=== PATIENT | male | born 1955 | race Caucasian/White ===

== ENCOUNTER 2016-12-18 18:01 | Emergency (ER) | payer SELFPAY ==
[~2016-12-18] VITALS: Ht 182.9 cm; Wt 76.0 kg
[~2016-12-18 18:01] MED LIST: CIPR-9 PO; CYCL-36 PO; PERC5TAB12 PO
[2016-12-18 18:02] VITALS: BP 131/86; PULSE 98; RESP 20; TEMP 98; O2SAT 94
--- NOTE | 2016-12-18 19:16 | PD ---
Physical Exam Date Seen by Provider: Dec 18, 2016 Time Seen by Provider: 19:15 Narrative 61-year-old white male presents to emergency Department with complaints of groin pain chronically. He states that he had a herniorrhaphy done a few years ago. In the last few weeks he's had worsening pain. Is also noticed some increased frequency and dysuria. He denies any fever or chills. No nausea vomiting. Pain is moderate but can be severe. Vital signs reviewed. Pt waiting for bed placement. Data Data Last Documented VS Vital Signs Date Time Temp Pulse Resp B/P (MAP) Pulse Ox O2 Delivery O2 Flow Rate FiO2 12/18/16 18:02 98.0 98 20 131/86 (101) 94 Room Air Orders Orders Urinalysis - C+S If Indicated (12/18/16 19:14) [facility] Medical Record Reviewed: No Supervised Visit with ERROL: No Scripts No Active Prescriptions or Reported Meds Mendoza Sibley Dec 18, 2016 19:16
[2016-12-18 19:39] LABS: BACTERIA, URINE MANY /hpf; BLOOD, URINE MOD (NEG); COMMENT (UR) CULTURE INDICATED; CULTURE IF INDICATED CULTURE INDICATED; GLUCOSE,URINE NEG (NEG); KETONE, URINE NEG (NEG); NITRITE,URINE NEG (NEG); PH, URINE 5.5 (5.0-8.5); SQUAMOUS EPITHELIAL CELL URINE 2 /hpf (0-5); TRANSITIONAL EPI CELLS, URINE 3 /hpf; URINE COLOR YELLOW (YELLW/STRAW)
[2016-12-18 20:36] VITALS: BP 123/78; PULSE 72; RESP 15; TEMP 97.7; O2SAT 98
[2016-12-18] MEDS ORDERED: SODIUM CHLOR 0.9% 1000 ML INJ 1,000 ML IV SCH (20:53)
[2016-12-18] MEDS ORDERED: ONDANSETRON HCL 4 MG/2 ML VIAL IVP ONE (21:00)
[2016-12-18] MEDS ORDERED: MORPHINE SULFATE 4 MG/ML INJ IV PUSH ONE (21:00)
[2016-12-18] MEDS ORDERED: cefTRIAXone INJ 1,000 MG in SODIUM CHLORIDE 0.9% INJ 100 ML IV ONE (21:00)
[2016-12-18] MEDS ORDERED: SODIUM CHLORIDE 0.9% FLUSH 10 ML FLUSH IV FLUSH PRN (21:00)
[2016-12-18 21:22] LABS: AUTOMATED NEUTROPHIL # 7.8 TH/MM3 (1.8-7.7); BASOPHIL % 0.3 % (0.0-2.0); EOSINOPHIL # 0.1 TH/MM3 (0-0.4); EOSINOPHIL % 0.6 % (0.0-4.0); HEMATOCRIT 42.6 % (39.0-51.0); HEMO FLAGS DIFF FINAL; LYMPH % 13.8 % (9.0-44.0); LYMPHOCYTE # 1.4 TH/MM3 (1.0-4.8); MEAN CELL VOLUME 89.1 FL (80.0-100.0); MEAN CORPUSCULAR HEMOGLOBIN 30.3 PG (27.0-34.0); MONO % 6.8 % (0.0-8.0); NEUT % 78.5 % (16.0-70.0); PLATELET COUNT 287 TH/MM3 (150-450); RED BLOOD COUNT 4.78 MIL/MM3 (4.50-5.90)
[2016-12-18 21:35] LABS: ANION GAP 7 MEQ/L (5-15); AST (GOT) 21 U/L (15-37); BICARBONATE 27.9 MEQ/L (21.0-32.0); BLOOD UREA NITROGEN 22 MG/DL (7-18); CHLORIDE 101 MEQ/L (98-107); GLOMERULAR FILTRATION RATE 58 ML/MIN (>89); POTASSIUM 4.7 MEQ/L (3.5-5.1); SODIUM (NA) 136 MEQ/L (136-145)
[2016-12-18 21:36] LABS: ALT (GPT) 28 U/L (12-78)
[2016-12-18 21:39] LABS: ALKALINE PHOSPHATASE 72 U/L (45-117); TOTAL BILIRUBIN ADULT 0.3 MG/DL (0.2-1.0)
--- NOTE | 2016-12-18 22:11 | PD ---
HPI Chief Complaint: Complaint Time Seen by Provider: 20:55 Travel History International Travel<30 days: No Contact w/Intl Traveler<30days: No Traveled to known affect area: No History of Present Illness HPI Patient is a 61-year-old male presenting to emergency department for evaluation of abdominal pain as well as burning with urination. Patient states that he has burning chronically for the last 45 days. He states it's worse today which is what prompted the visit to the emergency department. He reports the pain as a 9 out of 10, he reports chills but no fever. He also reports chronic right groin pain secondary to hernia repair in 2015. Patient states that this pain has not changed. He denies any shortness of breath, chest pain, flank pain. He denies any recent sexual activity. 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 PFSH Past Medical History Hx Anticoagulant Therapy: No Blood Disorders: No Cancer: No Cardiovascular Problems: No Chemotherapy: No Cerebrovascular Accident: No Diabetes: No Diminished Hearing: No Endocrine: No Gastrointestinal Disorders: No Genitourinary: Yes Immune Disorder: No Inguinal Hernia: Yes (RIGHT) Implanted Vascular Access Dvce: No Kidney Stones: Yes Musculoskeletal: No Neurologic: No Psychiatric: No Respiratory: No Migraines: Yes Renal Failure: No Tetanus Vaccination: Unknown Influenza Vaccination: Yes PNEUMOCCOCAL Vaccine (Year): 2 Past Surgical History Abdominal Surgery: No Cardiac Surgery: No Ear Surgery: No Endocrine Surgery: No Eye Surgery: No Genitourinary Surgery: Yes Gynecologic Surgery: No Neurologic Surgery: No Oral Surgery: No Thoracic Surgery: No Other Surgery: Yes (L KIDNEY LAC REPAIR, CYST REMOVED R WRIST) Social History Alcohol Use: No Tobacco Use: Yes (1/2PPD) Substance Use: Yes (MARIJUANA ) Allergies-Medications (Allergen,Severity, Reaction): Coded Allergies: No Known Allergies (Verified Adverse Reaction, Unknown, 12/18/16) Reported Meds & Prescriptions Reported Meds & Active Scripts Active No Active Prescriptions or Reported Medications Review of Systems Except as stated in HPI: all other systems reviewed are Neg General / Constitutional: Positive: Chills, No: Fever HENT: No: Headaches Cardiovascular: No: Chest Pain or Discomfort Respiratory: No: Shortness of Breath Gastrointestinal: Positive: Abdominal Pain, No: Nausea, Vomiting Genitourinary: Positive: Dysuria, No: Flank Pain Musculoskeletal: Positive: Pain (right groin), No: Myalgias Physical Exam Narrative GENERAL: Thin, well-developed, alert male. Appears uncomfortable, no acute distress. SKIN: Warm and dry. HEAD: Atraumatic. Normocephalic. EYES: Pupils equal and round. No scleral icterus. No injection or drainage. ENT: No nasal bleeding or discharge. Mucous membranes pink and moist. NECK: Trachea midline. No JVD. CARDIOVASCULAR: Regular rate and rhythm. RESPIRATORY: No accessory muscle use. Clear to auscultation. Breath sounds equal bilaterally. GASTROINTESTINAL: Abdomen soft, nondistended. Hepatic and splenic margins not palpable. Tenderness to palpation in right and left lower quadrants, positive bowel sounds, positive guarding. No rebound. MUSCULOSKELETAL: Extremities without clubbing, cyanosis, or edema. No obvious deformities. Positive CVAT on the left NEUROLOGICAL: Awake and alert. No obvious cranial nerve deficits. Motor grossly within normal limits. Five out of 5 muscle strength in the arms and legs. Normal speech. PSYCHIATRIC: Appropriate mood and affect; insight and judgment normal. Data Data Last Documented VS Vital Signs Date Time Temp Pulse Resp B/P (MAP) Pulse Ox O2 Delivery O2 Flow Rate FiO2 12/18/16 20:36 97.7 72 15 123/78 (93) 98 Room Air Orders Orders Urinalysis - C+S If Indicated (12/18/16 19:14) Urine Culture (12/18/16 19:20) Complete Blood Count With Diff (12/18/16 20:53) Comprehensive Metabolic Panel (12/18/16 20:53) Ct Abd/Pel W Iv Contrast(Rout) (12/18/16 20:53) Iv Access Insert/Monitor (12/18/16 20:53) Ecg Monitoring (12/18/16 20:53) Oximetry (12/18/16 20:53) Morphine Inj (Morphine Inj) (12/18/16 21:00) Ondansetron Inj (Zofran Inj) (12/18/16 21:00) Ceftriaxone Inj (Rocephin Inj) (12/18/16 21:00) Sodium Chlor 0.9% 1000 Ml Inj (Ns 1000 M (12/18/16 20:53) Sodium Chloride 0.9% Flush (Ns Flush) (12/18/16 21:00) Iohexol 350 Inj (Omnipaque 350 Inj) (12/18/16 22:46) Labs Laboratory Tests Test 12/18/16 19:20 12/18/16 21:00 Urine Color YELLOW Urine Turbidity CLOUDY Urine pH 5.5 Urine Specific [place] 1.021 Urine Protein 100 mg/dL Urine Glucose (UA) NEG mg/dL Urine Ketones NEG mg/dL Urine Occult Blood MOD Urine Nitrite NEG Urine Bilirubin NEG Urine Urobilinogen LESS THAN 2.0 MG/DL Urine Leukocyte Esterase LARGE Urine RBC 163 /hpf Urine WBC /hpf Urine Squamous Epithelial Cells 2 /hpf Urine Transitional Epithelial Cells 3 /hpf Urine Amorphous Sediment RARE Urine Bacteria MANY /hpf Microscopic Urinalysis Comment CULTURE INDICATED White Blood Count 10.0 TH/MM3 Red Blood Count 4.78 MIL/MM3 Hemoglobin 14.5 GM/DL Hematocrit 42.6 % Mean Corpuscular Volume 89.1 FL Mean Corpuscular Hemoglobin 30.3 PG Mean Corpuscular Hemoglobin Concent 34.0 % Red Cell Distribution Width 15.0 % Platelet Count 287 TH/MM3 Mean Platelet Volume 7.1 FL Neutrophils (%) (Auto) 78.5 % Lymphocytes (%) (Auto) 13.8 % Monocytes (%) (Auto) 6.8 % Eosinophils (%) (Auto) 0.6 % Basophils (%) (Auto) 0.3 % Neutrophils # (Auto) 7.8 TH/MM3 Lymphocytes # (Auto) 1.4 TH/MM3 Monocytes # (Auto) 0.7 TH/MM3 Eosinophils # (Auto) 0.1 TH/MM3 Basophils # (Auto) 0.0 TH/MM3 CBC Comment DIFF FINAL Differential Comment Blood Urea Nitrogen 22 MG/DL Creatinine 1.26 MG/DL Random Glucose 83 MG/DL Total Protein 7.2 GM/DL Albumin 3.3 GM/DL Calcium Level 9.4 MG/DL Alkaline Phosphatase 72 U/L Aspartate Amino Transf (AST/SGOT) 21 U/L Alanine Aminotransferase (ALT/SGPT) 28 U/L Total Bilirubin 0.3 MG/DL Sodium Level 136 MEQ/L Potassium Level 4.7 MEQ/L Chloride Level 101 MEQ/L Carbon Dioxide Level 27.9 MEQ/L Anion Gap 7 MEQ/L Estimat Glomerular Filtration Rate 58 ML/MIN MDM Medical Decision Making Medical Screen Exam Complete: Yes Emergency Medical Condition: Yes Interpretation(s) Laboratory Tests Test 12/18/16 19:20 12/18/16 21:00 Urine Color YELLOW Urine Turbidity CLOUDY Urine pH 5.5 Urine Specific [place] 1.021 Urine Protein 100 mg/dL Urine Glucose (UA) NEG mg/dL Urine Ketones NEG mg/dL Urine Occult Blood MOD Urine Nitrite NEG Urine Bilirubin NEG Urine Urobilinogen LESS THAN 2.0 MG/DL Urine Leukocyte Esterase LARGE Urine RBC 163 /hpf Urine WBC /hpf Urine Squamous Epithelial Cells 2 /hpf Urine Transitional Epithelial Cells 3 /hpf Urine Amorphous Sediment RARE Urine Bacteria MANY /hpf Microscopic Urinalysis Comment CULTURE INDICATED White Blood Count 10.0 TH/MM3 Red Blood Count 4.78 MIL/MM3 Hemoglobin 14.5 GM/DL Hematocrit 42.6 % Mean Corpuscular Volume 89.1 FL Mean Corpuscular Hemoglobin 30.3 PG Mean Corpuscular Hemoglobin Concent 34.0 % Red Cell Distribution Width 15.0 % Platelet Count 287 TH/MM3 Mean Platelet Volume 7.1 FL Neutrophils (%) (Auto) 78.5 % Lymphocytes (%) (Auto) 13.8 % Monocytes (%) (Auto) 6.8 % Eosinophils (%) (Auto) 0.6 % Basophils (%) (Auto) 0.3 % Neutrophils # (Auto) 7.8 TH/MM3 Lymphocytes # (Auto) 1.4 TH/MM3 Monocytes # (Auto) 0.7 TH/MM3 Eosinophils # (Auto) 0.1 TH/MM3 Basophils # (Auto) 0.0 TH/MM3 CBC Comment DIFF FINAL Differential Comment Blood Urea Nitrogen 22 MG/DL Creatinine 1.26 MG/DL Random Glucose 83 MG/DL Total Protein 7.2 GM/DL Albumin 3.3 GM/DL Calcium Level 9.4 MG/DL Alkaline Phosphatase 72 U/L Aspartate Amino Transf (AST/SGOT) 21 U/L Alanine Aminotransferase (ALT/SGPT) 28 U/L Total Bilirubin 0.3 MG/DL Sodium Level 136 MEQ/L Potassium Level 4.7 MEQ/L Chloride Level 101 MEQ/L Carbon Dioxide Level 27.9 MEQ/L Anion Gap 7 MEQ/L Estimat Glomerular Filtration Rate 58 ML/MIN Vital Signs Date Time Temp Pulse Resp B/P (MAP) Pulse Ox O2 Delivery O2 Flow Rate FiO2 12/18/16 20:36 97.7 72 15 123/78 (93) 98 Room Air 10/31/17 18:02 98.0 98 20 131/86 (101) 94 Room Air Differential Diagnosis Kidney stone versus UTI versus pyelonephritis versus appendicitis versus other Narrative Course Patient is 61-year-old male presenting with urinary symptoms as well as chronic groin pain. On exam his abdomen was noted to be quite tender. Labs and imaging were ordered and pending, medication ordered for pain. Urinalysis was performed while patient was waiting in triage. Rocephin 1 g IV given. Urinalysis is consistent with a urinary tract infection. CT scan abdomen and pelvis which was read by the radiologist shows Tiny nonobstructing right renal calculi and cysts. Prominent residual left renal pelvis with no hydronephrosis. The inguinal regions are stable in appearance with no recurrent hernia. Patient's labs reviewed, no acute findings identified. Patient will be treated as outpatient for urinary tract infection. He was encouraged to follow-up with the [facility] or return to emergency department with any new or worsening symptoms. Patient was encouraged to increase fluid intake. Patient verbalized understanding of instructions. Patient stable for discharge. Diagnosis Primary Impression: UTI (urinary tract infection) Qualified Codes: N10 - Acute pyelonephritis Referrals: [facility] Patient Instructions: General Instructions, Urinary Tract Infection in Men (ED) Additional Instructions: Complete full course of antibiotics as prescribed Increase fluid intake Follow-up with the [facility] Return to emergency department for any new or worsening symptoms Do not drive or operate machinery while taking pain medication. Med/Other Pt SpecificInfo: Prescription(s) given Scripts Tramadol (Tramadol) 50 Mg Tab 50 MG PO Q6H Y for PAIN, #10 TAB 0 Refills Prov: Karma Dickens 12/18/16 Ciprofloxacin (Cipro) 500 Mg Tab 500 MG PO BID for Infection for 7 Days, #14 TAB 0 Refills Prov: Karma Dickens 12/18/16 Disposition: 01 DISCHARGE HOME Condition: Stable Karma Dickens Dec 18, 2016 22:11
[2016-12-18] MEDS ORDERED: IOHEXOL 350 MG/ML 10 ML VIAL (for RAD DIAG) IVCONTRAST ONE (22:46)
--- NOTE | 2016-12-18 22:51 | RADRPT ---
EXAM DATE/TIME: 12/18/2016 22:28 [place] COMPARISON: CT ABDOMEN & PELVIS W/O CONTRAST, January 29, 2016, 21:11. INDICATIONS : Painful urination with chronic inguinal hernia pain. Known renal calculi and prior left obstruction.. IV CONTRAST: 100 cc Omnipaque 350 (iohexol) IV ORAL CONTRAST: No oral contrast ingested. RADIATION DOSE: 6.64 CTDIvol (mGy) MEDICAL HISTORY : Renal calculi. Hernia, inguinal. SURGICAL HISTORY : Inguinal hernia repair. ENCOUNTER: Initial ACUITY: 1 day PAIN SCALE: 5/10 LOCATION: abdomen TECHNIQUE: Volumetric scanning of the abdomen and pelvis was performed. Using automated exposure control and ad justment of the mA and/or kV according to patient size, radiation dose was kept as low as reasonably achievable to obtain optimal diagnostic quality images. DICOM format image data is available electro nically for review and comparison. FINDINGS: LOWER LUNGS: The visualized lower lungs are clear. There is underlying emphysema and bullous change. LIVER: Homogeneous density without lesion. There is no dilation of the biliary tree. No calcified gallston es. SPLEEN: Normal size without lesion. PANCREAS: Within normal limits. KIDNEYS: Normal in size and shape. There are simple cysts in the right kidney with small nonobstructing calcul i. Previous noted left hydronephrosis has cleared with residual prominence left renal pelvis. ADRENAL GLANDS: Within normal limits. VASCULAR: There is no aortic aneurysm. BOWEL/MESENTERY: The stomach, small bowel, and colon demonstrate no acute abnormality. There is no free intraperitone al air or fluid. ABDOMINAL WALL: Within normal limits. RETROPERITONEUM: There is no lymphadenopathy. BLADDER: No wall thickening or mass. REPRODUCTIVE: Within normal limits. INGUINAL: There is no lymphadenopathy or hernia. MUSCULOSKELETAL: Within normal limits for patient age. CONCLUSION: 1. Tiny nonobstructing right renal calculi and cysts. 2. Prominent residual left renal pelvis with no hydronephrosis. 3. The inguinal regions are stable in appearance with no recurrent hernia. Armaan Gonzalez MD on December 18, 2016 at 22:46 Board Certified Radiologist. This report was verified electronically.
[2016-12-18] MEDS ORDERED: CIPR-9 PO (23:02)
[2016-12-18] MEDS ORDERED: TRAM50TA PO (23:02)
[2016-12-18 23:46] VITALS: BP 144/87
== END 2016-12-18 23:47 | disposition home or self-care (01) ==
LOC: NEPD 18:01
DX: N10 Acute pyelonephritis (principal); N20.0 Calculus of kidney; F17.210 Nicotine dependence, cigarettes, uncomplicated
CPT/HCPCS: 74177; 80053; 81001; 85025; 86403; 87086; 96365; 96375; 99285; J0696; J2270; J2405; J7030; Q9967

== ENCOUNTER 2017-09-30 18:50 | Inpatient (IN) ==
[2017-09-30] MEDS ORDERED: Orphenadrine Inj 60 MG/2 ML Ampul IV.PUSH ONE (21:18)
[2017-09-30] MEDS ORDERED: Ketorolac Inj 30 MG/ML (IVP) Vial IV.PUSH ONE (21:18)
--- NOTE | 2017-09-30 21:27 | ED ---
HPI General Chief Complaint: Shortness of Breath/Dyspnea Stated Complaint: Rt sided chest wall pain Time Seen by Provider: 09/30/17 21:11 Source: patient Mode of arrival: ambulatory Limitations: no limitations History of Present Illness Patient is a 61-year-old male presenting to the emergency department for evaluation of shortness of breath and right lateral rib pain. Patient states that he was moving and industrial-sized washing machine 2 days ago, later on that night he started experiencing the rib pain and felt short of breath when he took a deep breath. Patient's symptoms have been getting progressively worse since that time. Patient has not taken any medications to alleviate his symptoms. Nothing fell on patient's chest. MD Complaint: shortness of breath and pain with inspiration Context: occurred during exertion and trauma/injury Severity: moderate Consistency/Duration: constant and progressively worsening Relieving factors: nothing Exacerbating factors: exertion, movement, coughing, inspiration and deep breaths Associated symptoms: denies other symptoms Treatment prior to arrival: none Related Data Home Medications Medication Instructions Recorded Confirmed No Known Home Medications 09/30/17 09/30/17 Allergies Allergy/AdvReac Type Severity Reaction Status Date / Time No Known Allergies Unknown Uncoded 12/18/16 19:11 Review of Systems ROS: all other systems reviewed are negative PMFSH History History Provided By: Patient Family History Family History Other Coronary artery disease Diabetes mellitus Social History Social History Substance History: No History of Abuse Second Hand Smoke Exposure: Yes Smoking Status: Current every day smoker Tobacco Type: Cigarettes How Often Do You Have a Drink Containing Alcohol: Monthly or less Recent Travel in [facility] within the Last 8 Weeks: No Recent Out of Country Travel within the Last 8 Weeks: No Exam Narrative Exam Narrative: GENERAL: Thin, well-developed, alert male. Appears uncomfortable, in no acute distress. SKIN: Focused skin assessment warm/dry. HEAD: Atraumatic. Normocephalic. EYES: Pupils equal and round. No scleral icterus. No injection or drainage. ENT: No nasal bleeding or discharge. Mucous membranes pink and moist. NECK: Trachea midline. No JVD. CARDIOVASCULAR: Regular rate and rhythm. No murmur appreciated. RESPIRATORY: Tachypneic. no accessory muscle use. Wheezes throughout. GASTROINTESTINAL: Abdomen soft, non-tender, nondistended. Hepatic and splenic margins not palpable. MUSCULOSKELETAL: No obvious deformities. No clubbing. No cyanosis. No edema. NEUROLOGICAL: Awake and alert. No obvious cranial nerve deficits. Motor grossly within normal limits. Normal speech. PSYCHIATRIC: Appropriate mood and affect; insight and judgment normal. Course Initial Documented Vital Signs Temperature 97.2 F L 09/30/17 18:54 Pulse Rate 92 H 09/30/17 18:54 Respiratory Rate 24 09/30/17 18:54 Blood Pressure 158/78 H 09/30/17 18:54 Pulse Oximetry 92 L 09/30/17 18:54 Last Documented Vital Signs Temperature 97.8 F 10/02/17 16:00 Pulse Rate 69 10/02/17 16:00 Respiratory Rate 16 10/02/17 16:00 Blood Pressure 136/81 10/02/17 16:00 Pulse Oximetry 93 L 10/02/17 16:00 Medical Decision Making ERROL Attestation ERROL supervised visit: Yes Attestation: I was present with the advanced practitioner during the management of this patient. I discussed the case with the advanced practitioner and agree with the findings and plan as documented in their note except as noted below. 61yM presenting with right-sided chest pain. He reports dyspnea and cough x 2 days, started after moving a heavy object but denies direct trauma. Appears uncomfortable NCAT Borderline tachy, regular No chest wall tenderness (+) wheezing in RLL Abdomen soft and non-tender Awake and alert A/P: 61yM presenting with right-sided chest pain and cough CXR [facility] EKG and monitor Patient noted to desaturate to high 80s on room air during ambulation, will need obs vs admission MDM Narrative Medical decision making narrative: Patient is a 61-year-old male that presented to emerge from for evaluation of right lateral rib pain secondary to moving a heavy washing machine. Patient is tachypneic and his O2 sat was in the upper 80s on arrival. Labs and imaging ordered and pending. Chest x-ray shows a developing pneumonia. CBC is unremarkable. Patient was given Toradol and Norflex for pain. He was started on antibiotics empirically. Patient will be admitted for pain control and due to the hypoxia. Patient is agreeable to stay. Plan of care discussed with my attending physician. Differential Diagnosis Differential Diagnosis: Pneumothorax versus costochondritis versus pneumonia versus bronchitis versus other Lab Data Lab results reviewed: Yes I reviewed the patient's lab results. Result diagrams: 10/02/17 06:34 10/02/17 06:34 Lab Results 09/30/17 09/30/17 10/01/17 Range/Units 21:30 21:30 05:00 WBC 7.9 6.1 (4.0-11.0) th/mm3 RBC 4.42 L 4.02 L (4.50-5.90) mil/mm3 Hgb 12.9 L 11.7 L (13.0-17.0) gm/dL Hct 38.1 L 35.4 L (39.0-51.0) % MCV 86.2 87.9 (80.0-100.0) fL MCH 29.2 29.1 (27.0-34.0) pg MCHC 33.9 33.1 (32.0-36.0) % RDW 15.8 16.3 (11.6-17.2) % Plt Count 257 234 (150-450) th/mm3 MPV 7.9 7.8 (7.0-11.0) fL Neut % (Auto) 76.8 H 73.6 H (16.0-70.0) % Lymph % (Auto) 12.3 14.1 (9.0-44.0) % [place] % (Auto) 9.0 H 10.4 H (0.0-8.0) % Eos % (Auto) 1.4 1.5 (0.0-4.0) % Baso % (Auto) 0.5 0.4 (0.0-2.0) % Neut # (Auto) 6.1 4.5 (1.8-7.7) th/mm3 Lymph # (Auto) 1.0 0.9 L (1.0-4.8) th/mm3 [place] # (Auto) 0.7 0.6 (0.0-0.9) th/mm3 Eos # (Auto) 0.1 0.1 (0.0-0.4) th/mm3 Baso # (Auto) 0.0 0.0 (0.0-0.2) th/mm3 WBC Differential . . Differential Comment Auto diff final Auto diff final Sodium 142 (136-145) meq/L Potassium 4.3 (3.5-5.1) meq/L Chloride 107 (98-107) meq/L Carbon Dioxide 29.3 (21.0-32.0) meq/L Anion Gap 6 (5-15) meq/L BUN 24 H (7-18) mg/dL Creatinine 1.32 H (0.60-1.30) mg/dL Estimated GFR 55 L (>89) mL/min Random Glucose 81 (74-106) mg/dL Calcium 8.7 (8.5-10.1) mg/dL Magnesium (1.5-2.5) mg/dL Total Bilirubin 0.3 (0.2-1.0) mg/dL AST 17 (15-37) U/L ALT 20 (12-78) U/L Alkaline Phosphatase 69 (45-117) U/L Total Protein 6.7 (6.4-8.2) g/dL Albumin 3.0 L (3.4-5.0) g/dL 10/01/17 10/02/17 10/02/17 Range/Units 05:00 06:34 06:34 WBC 7.1 (4.0-11.0) th/mm3 RBC 4.12 L (4.50-5.90) mil/mm3 Hgb 12.0 L (13.0-17.0) gm/dL Hct 35.5 L (39.0-51.0) % MCV 86.1 (80.0-100.0) fL MCH 29.2 (27.0-34.0) pg MCHC 33.9 (32.0-36.0) % RDW 16.1 (11.6-17.2) % Plt Count 256 (150-450) th/mm3 MPV 7.9 (7.0-11.0) fL Neut % (Auto) 72.8 H (16.0-70.0) % Lymph % (Auto) 16.9 (9.0-44.0) % [place] % (Auto) 8.5 H (0.0-8.0) % Eos % (Auto) 1.5 (0.0-4.0) % Baso % (Auto) 0.3 (0.0-2.0) % Neut # (Auto) 5.2 (1.8-7.7) th/mm3 Lymph # (Auto) 1.2 (1.0-4.8) th/mm3 [place] # (Auto) 0.6 (0.0-0.9) th/mm3 Eos # (Auto) 0.1 (0.0-0.4) th/mm3 Baso # (Auto) 0.0 (0.0-0.2) th/mm3 WBC Differential . Differential Comment Auto diff final Sodium 140 139 (136-145) meq/L Potassium 4.0 3.8 (3.5-5.1) meq/L Chloride 106 105 (98-107) meq/L Carbon Dioxide 26.4 27.5 (21.0-32.0) meq/L Anion Gap 8 7 (5-15) meq/L BUN 23 H 19 H (7-18) mg/dL Creatinine 1.08 0.98 (0.60-1.30) mg/dL Estimated GFR 69 L 78 L (>89) mL/min Random Glucose 88 84 (74-106) mg/dL Calcium 8.2 L 8.4 L (8.5-10.1) mg/dL Magnesium 2.0 (1.5-2.5) mg/dL Total Bilirubin (0.2-1.0) mg/dL AST (15-37) U/L ALT (12-78) U/L Alkaline Phosphatase (45-117) U/L Total Protein (6.4-8.2) g/dL Albumin (3.4-5.0) g/dL Imaging Data Radiologist's impression: Chest X-Ray 09/30/17 21:17 CONCLUSION: Patchy airspace disease in the right lower lobe of concern for early pneumonia. ECG Data Attestation: I personally reviewed and interpreted this ECG as follows: Interpretation: Rate: 77 BPM Rhythm: Sinus [place]: Normal Intervals: Incomplete RBBB, QTc 400 ms Q waves: aVL, V2 T waves: Inverted in aVL, V2 ST segments: No elevations or depressions Impression: Incomplete RBBB which is new when compared to EKG from 02/01/2016. Discharge Plan Discharge Disposition Patient Disposition: 30 Still Patient Discharge Condition Condition: Stable Discharge Details Diagnosis: Community acquired pneumonia, Rib pain on right side Physicians Team ED Provider: Alyssa Ramirez ED Midlevel Provider: Karma Dickens Primary Care Provider: Primary Care Natalii,Dinah Attending Provider: Handy Eli Status ED Status: Left Department Discharge Information Discharge Date/Time: 10/01/17 00:38
--- NOTE | 2017-09-30 21:38 | XR ---
EXAM DATE: 09/30/2017 9:32 PM EDT AGE/SEX: 61 years / Male INDICATIONS: . Chest pain on right side. CLINICAL DATA: This is the patient's initial encounter. Patient reports that signs and symptoms have been present for 2 days and indicates a pain score of 9/10. MEDICAL/SURGICAL HISTORY: Chronic obstructive pulmonary disease. None. COMPARISON: No prior exams available for comparison. FINDINGS: PA and lateral views the chest were obtained and demonstrate patchy airspace disease in the right low er lobe. The left lung is clear. There is no effusion. The heart and mediastinal structures are withi n normal limits. The bony thorax is intact. CONCLUSION: Patchy airspace disease in the right lower lobe of concern for early pneumonia. Electronically signed by: Armaan Gonzalez MD 09/30/2017 9:37 PM EDT
[2017-09-30] MEDS ORDERED: Azithromycin Inj 500 MG in Sodium Chlor 0.9% Inj 250 ML IV.SIG STA (21:46)
[2017-09-30 22:13] LABS: Baso % (Auto) 0.5 % (0.0-2.0); Eos # (Auto) 0.1 th/mm3 (0.0-0.4); Eos % (Auto) 1.4 % (0.0-4.0); Hematocrit 38.1 % (39.0-51.0); Hemoglobin 12.9 gm/dL (13.0-17.0); Lymph % (Auto) 12.3 % (9.0-44.0); Mean Corpuscular HGB Conc 33.9 % (32.0-36.0); Mean Corpuscular Hemoglobin 29.2 pg (27.0-34.0); Mean Corpuscular Volume 86.2 fL (80.0-100.0); Mean Platelet Volume 7.9 fL (7.0-11.0); Mono # (Auto) 0.7 th/mm3 (0.0-0.9); Neut # (Auto) 6.1 th/mm3 (1.8-7.7); Neut % (Auto) 76.8 % (16.0-70.0); Platelet Count 257 th/mm3 (150-450); Red Blood Count 4.42 mil/mm3 (4.50-5.90); Red Cell Distribution Width 15.8 % (11.6-17.2); White Blood Count 7.9 th/mm3 (4.0-11.0)
[2017-09-30 22:32] LABS: Alanine Aminotransferase 20 U/L (12-78); Anion Gap 6 meq/L (5-15); Aspartate Aminotransferase 17 U/L (15-37); Blood Urea Nitrogen 24 mg/dL (7-18); Calcium 8.7 mg/dL (8.5-10.1); Carbon Dioxide 29.3 meq/L (21.0-32.0); Chloride 107 meq/L (98-107); Glomerular Filtration Rate 55 mL/min (>89); Glucose,Random 81 mg/dL (74-106); Potassium 4.3 meq/L (3.5-5.1); Sodium 142 meq/L (136-145)
[2017-09-30 22:35] LABS: Alkaline Phosphatase 69 U/L (45-117); Total Protein 6.7 g/dL (6.4-8.2)
[2017-09-30] MEDS ORDERED: Acetaminophen 325 MG Tablet PO PRN (23:53)
[2017-09-30] MEDS ORDERED: Bisacodyl 10 MG Supp RECTAL PRN (23:53)
[2017-09-30] MEDS ORDERED: Lidocaine 5% Patch T-DERMAL ONE (23:54)
--- NOTE | 2017-10-01 00:07 | P.HP ---
History of Present Illness Service: [facility] Primary Care Physician: No Primary Care Physician History of Present Illness: 61-year-old male with a past medical history significant for migraines presents to the emergency department for the evaluation of shortness of breath. The patient also complains of right sided rib pain. Patient states that he was moving an industrial sized washing machine 2 days ago and later that night he started experiencing rib pain and felt short of breath, worse with deep inspiration. The patient's symptoms have been per getting progressively worse. He was found to be hypoxic on room air on arrival to the emergency department. No fever/chills. No additional chest pain or tightness. No abdominal pain. No nausea/vomiting/diarrhea. No lateralizing signs/symptoms. Review of Systems All other systems reviewed negative except as stated in HPI [facility] - History History Provided By: Patient - Medical History Medical History: Medical History (Last Updated 09/30/17 @ 23:57 by Bhumika Mejia MD) Migraines - Surgical History Surgical History: Surgical History (Last Updated 09/30/17 @ 23:58 by Bhumika Mejia MD) History of hernia repair - Family History Family History: Family History (Last Updated 09/30/17 @ 23:59 by Bhumika Mejia MD) Other Coronary artery disease Diabetes mellitus - Tobacco History Second Hand Smoke Exposure: Yes Tobacco Use In Past 30 Days: Yes Smoking Status: Current every day smoker Tobacco Type: Cigarettes - Alcohol History How Often Do You Have a Drink Containing Alcohol: Monthly or less - Travel History Recent Travel in the [place] Within the Last 8 Weeks: No Recent Travel Out of the Country Within the Last 8 Weeks: No - Immunization History Tetanus Immunization: >5 Years Medications and Allergies Active Medications: Active Medications Acetaminophen (Tylenol) 650 mg PO Q4H PRN PRN Reason: Temp > 100.4 Al Hydroxide/Mg Hydroxide (Milk Of Magnharley Liq) 30 ml PO Q12H PRN PRN Reason: Mild Constipation Albuterol (Duoneb Neb (Prn)) 1 ampul NEB Q4HR NEB PRN PRN Reason: SHORTNESS OF BREATH/WHEEZING Bisacodyl (Dulcolax Supp) 10 mg RECTAL DAILY PRN PRN Reason: SEVERE CONSITIPATION Heparin Sodium (Porcine) (Heparin Inj) 5,000 units SQ Q12H MARISSA Azithromycin 500 mg/ Sodium (Chloride) 250 mls @ 250 mls/hr IV.SIG Q24H MARISSA Ceftriaxone Sodium 1,000 mg/ (Sodium Chloride) 100 mls @ 200 mls/hr IV.SIG Q24H MARISSA Lactulose (Lactulose Liq) 30 ml PO DAILY PRN PRN Reason: SEVERE CONSITIPATION Ondansetron HCl (Zofran Inj) 4 mg IV.PUSH Q6H PRN PRN Reason: NAUSEA OR VOMITING Oxycodone/Acetaminophen (Percocet 5/325 Mg) 1 tab PO Q4H PRN PRN Reason: pain 6-10 Patch Removal (Remove Old Patch) 1 each T-DERMAL HS MARISSA Senna/Docusate Sodium (Monique-Colace) 1 tab PO BID MARISSA Sennosides (Senokot) 17.2 mg PO Q12H PRN PRN Reason: Moderate Constipation Sodium Chloride (Ns Flush) 2 ml IV.FLUSH BID MARISSA Sodium Chloride (Ns Flush) 2 ml IV.FLUSH PRN PRN PRN Reason: FLUSH AFTER USING IV ACCESS Temazepam (Restoril) 15 mg PO HS PRN PRN Reason: INSOMNIA Allergies Allergy/AdvReac Type Severity Reaction Status Date / Time No Known Allergies Unknown Uncoded 12/18/16 19:11 Home Medications Medication Instructions Recorded Confirmed Type No Known Home Medications 09/30/17 09/30/17 History Exam Vital signs: Vital Signs 09/30/17 18:54 09/30/17 21:46 09/30/17 21:55 Temperature 97.2 F L Pulse Rate 92 H Respiratory Rate 24 Blood Pressure 158/78 H Pulse Oximetry 92 L 92 L 95 09/30/17 22:02 Temperature Pulse Rate 80 Respiratory Rate 18 Blood Pressure Pulse Oximetry Intake & Output 09/30/17 09/30/17 10/01/17 06:59 18:59 06:59 Weight 77.111 kg Narrative: Gen.: No acute distress Head: Normocephalic. Atraumatic. EENT: Pupils equal round and reactive to light. Nose without drainage. Airway intact. Throat without injection. Cardiovascular: Regular rate and rhythm. No murmurs, rubs or gallops. Respiratory: Lungs clear to auscultation bilaterally. No wheezes or rhonchi. Unable to inspire fully secondary to pain. Abdomen: Soft, nontender, nondistended. No peritoneal signs. Musculoskeletal: No gross deformities. No edema. Skin: No obvious rashes or erythema. Neuro: Sensory and motor grossly intact. Cranial nerves II through XII grossly intact. Results - Labs CBC & Chem 7: 09/30/17 21:30 09/30/17 21:30 Labs: Laboratory Results - last 24 hr 09/30/17 09/30/17 21:30 21:30 WBC 7.9 RBC 4.42 L Hgb 12.9 L Hct 38.1 L MCV 86.2 MCH 29.2 MCHC 33.9 RDW 15.8 Plt Count 257 MPV 7.9 Neut % (Auto) 76.8 H Lymph % (Auto) 12.3 [place] % (Auto) 9.0 H Eos % (Auto) 1.4 Baso % (Auto) 0.5 Neut # (Auto) 6.1 Lymph # (Auto) 1.0 [place] # (Auto) 0.7 Eos # (Auto) 0.1 Baso # (Auto) 0.0 WBC Differential . Differential Comment Auto diff final Sodium 142 Potassium 4.3 Chloride 107 Carbon Dioxide 29.3 Anion Gap 6 BUN 24 H Creatinine 1.32 H Estimated GFR 55 L Random Glucose 81 Calcium 8.7 Total Bilirubin 0.3 AST 17 ALT 20 Alkaline Phosphatase 69 Total Protein 6.7 Albumin 3.0 L - Imaging Impressions Chest X-Ray 09/30/17 21:17 CONCLUSION: Patchy airspace disease in the right lower lobe of concern for early pneumonia. Caprini VTE Risk Assessment Caprini VTE Risk Assessment: Moderate/High Risk (score >= 2) Caprini Risk Assessment Model: Point Value = 1 Point Value = 2 Point Value = 3 Point Value = 5 Age 41-60 Minor surgery BMI > 25 kg/m2 Swollen legs Varicose veins or History of unexplained or recurrent spontaneous Oral contraceptives or hormone replacement Sepsis (< 1 month) Serious lung disease, including pneumonia (< 1 month) Abnormal pulmonary function Acute myocardial infarction Congestive heart failure (< 1 month) History of inflammatory bowel disease Medical patient at bed rest Age 61-74 Arthroscopic surgery Major open surgery (> 45 min) Laparoscopic surgery (> 45 min) Malignancy Confined to bed (> 72 hours) Immobilizing plaster cast Central venous access Age >= 75 History of VTE Family history of VTE Factor V Leiden Prothrombin [id number] Lupus anticoagulant Anticardiolipin antibodies Elevated serum homocysteine Heparin-induced thrombocytopenia Other congenital or acquired thrombophilia Stroke (< 1 month) Elective arthroplasty Hip, pelvis, or leg fracture Acute spinal cord injury (< 1 month) Prophylaxis Regimen: Total Risk Factor Score Risk Level Prophylaxis Regimen 0-1 Low Early ambulation 2 Moderate Order ONE of the following: *Sequential Compression Device (SCD) *Heparin 5000 units SQ BID 3-4 Higher Order ONE of the following medications: *Heparin 5000 units SQ TID *Enoxaparin/Lovenox 40 mg SQ daily (WT < 150 kg, CrCl > 30 mL/min) *Enoxaparin/Lovenox 30 mg SQ daily (WT < 150 kg, CrCl > 10-29 mL/min) *Enoxaparin/Lovenox 30 mg SQ BID (WT < 150 kg, CrCl > 30 mL/min) AND/OR *Sequential Compression Device (SCD) 5 or more Highest Order ONE of the following medications: *Heparin 5000 units SQ TID (Preferred with Epidurals) *Enoxaparin/Lovenox 40 mg SQ daily (WT < 150 kg, CrCl > 30 mL/min) *Enoxaparin/Lovenox 30 mg SQ daily (WT < 150 kg, CrCl > 10-29 mL/min) *Enoxaparin/Lovenox 30 mg SQ BID (WT < 150 kg, CrCl > 30 mL/min) AND *Sequential Compression Device (SCD) Assessment and Plan - Plan Assessment/plan: 1. Community-acquired pneumonia Chest x-ray significant for patchy airspace disease in the right lower lobe concerning for early pneumonia Rocephin/azithromycin Duo nebs Supplemental oxygen as needed Decreased inspiratory effort likely secondary to rib pain Incentive spirometry 2. Rib strain No bony abnormalities noted on chest x-ray Tender to palpation Percocet for pain control 3. Chronic kidney disease Creatinine 1.32, baseline Monitor renal function FEN Heart healthy diet Electrolytes: Monitor and replete as needed Heparin
--- NOTE | 2017-10-01 06:06 | ECG ---
Date Performed: 09/30/2017 Time Performed: 21:18:50 PTAGE: 61 years EKG: Sinus rhythm INCOMPLETE RIGHT BUNDLE BRANCH BLOCK SEPTAL MYOCARDIAL INFARCTION ABNORMAL ECG No significant change from prior electrocardiogram. PREVIOUS TRACING : 02/01/2016 07.01 DOCTOR: Villa Cabral Interpretating Date/Time 10/01/2017 06:04:17
[2017-10-01 06:15] LABS: Baso % (Auto) 0.4 % (0.0-2.0); Eos # (Auto) 0.1 th/mm3 (0.0-0.4); Eos % (Auto) 1.5 % (0.0-4.0); Hematocrit 35.4 % (39.0-51.0); Hemoglobin 11.7 gm/dL (13.0-17.0); Lymph # (Auto) 0.9 th/mm3 (1.0-4.8); Lymph % (Auto) 14.1 % (9.0-44.0); Mean Corpuscular HGB Conc 33.1 % (32.0-36.0); Mean Corpuscular Hemoglobin 29.1 pg (27.0-34.0); Mean Corpuscular Volume 87.9 fL (80.0-100.0); Mean Platelet Volume 7.8 fL (7.0-11.0); Mono # (Auto) 0.6 th/mm3 (0.0-0.9); Mono % (Auto) 10.4 % (0.0-8.0); Neut # (Auto) 4.5 th/mm3 (1.8-7.7); Neut % (Auto) 73.6 % (16.0-70.0); Platelet Count 234 th/mm3 (150-450); Red Blood Count 4.02 mil/mm3 (4.50-5.90); Red Cell Distribution Width 16.3 % (11.6-17.2); White Blood Count 6.1 th/mm3 (4.0-11.0)
[2017-10-01 06:26] LABS: Calcium 8.2 mg/dL (8.5-10.1); Carbon Dioxide 26.4 meq/L (21.0-32.0)
[2017-10-01] MEDS: Senna/Docusate Sodium 8.6/50 MG Tablet PO SCH ×2 (12:36→20:54)
[2017-10-01] MEDS ORDERED: Naloxone Inj 0.4 MG/ML Vial IV.PUSH PRN (14:40)
--- NOTE | 2017-10-01 16:14 | P.PN ---
Subjective Interval history: Patient is seen lying on bed. He is curled on his side and tells me that he is suffering a migraine. Tells me he has had them for many years and has previously tried to treat with Tylenol and ibuprofen and "anything get his hands on" but nothing really helps. He reports that the pain is over his whole head and is tight and squeezing. He is nauseated. And very sensitive to light. Denies any shortness of breath or chest pain. No fever chills. Physical Exam Vital signs: Vital Signs 09/30/17 18:54 09/30/17 21:46 09/30/17 21:55 Temperature 97.2 F L Pulse Rate 92 H Respiratory Rate 24 Blood Pressure 158/78 H Pulse Oximetry 92 L 92 L 95 09/30/17 22:02 09/30/17 22:05 10/01/17 00:00 Temperature 97.6 F Pulse Rate 80 86 Respiratory Rate 18 18 17 Blood Pressure 142/75 H Pulse Oximetry 88 L 92 L 10/01/17 00:05 10/01/17 02:47 10/01/17 07:10 Temperature Pulse Rate 87 Respiratory Rate 18 Blood Pressure Pulse Oximetry 94 L 95 10/01/17 07:30 10/01/17 08:21 10/01/17 12:00 Temperature 97.6 F 97.7 F Pulse Rate 66 74 77 Respiratory Rate 16 22 18 Blood Pressure 124/76 127/70 Pulse Oximetry 94 L 93 L 10/01/17 13:46 Temperature Pulse Rate 70 Respiratory Rate 20 Blood Pressure 105/74 Pulse Oximetry Intake & Output 09/30/17 10/01/17 10/01/17 18:59 06:59 18:59 Intake Total 350 / 350 Balance 350 / 350 Weight 77.111 kg Intake: Oral 350 / 350 Other: # Voids 2 Date of Last Bowel Movement 09/30/17 Narrative: GENERAL: Well-nourished, well-developed adult male. SKIN: Warm and dry. HEAD: Atraumatic. Normocephalic. CARDIOVASCULAR: Regular rate and rhythm. RESPIRATORY: No accessory muscle use. Clear to auscultation. Breath sounds equal bilaterally. GASTROINTESTINAL: Abdomen soft, non-tender, non-distended. Positive bowel sounds. MUSCULOSKELETAL: Extremities without clubbing, cyanosis, or edema. No obvious deformities. NEUROLOGICAL: Awake and alert. No obvious cranial nerve deficits. Motor grossly within normal limits. Normal speech. Results - Labs CBC & Chem 7: 10/01/17 05:00 10/01/17 05:00 Laboratory Results - last 24 hr 09/30/17 09/30/17 10/01/17 21:30 21:30 05:00 WBC 7.9 6.1 RBC 4.42 L 4.02 L Hgb 12.9 L 11.7 L Hct 38.1 L 35.4 L MCV 86.2 87.9 MCH 29.2 29.1 MCHC 33.9 33.1 RDW 15.8 16.3 Plt Count 257 234 MPV 7.9 7.8 Neut % (Auto) 76.8 H 73.6 H Lymph % (Auto) 12.3 14.1 [place] % (Auto) 9.0 H 10.4 H Eos % (Auto) 1.4 1.5 Baso % (Auto) 0.5 0.4 Neut # (Auto) 6.1 4.5 Lymph # (Auto) 1.0 0.9 L [place] # (Auto) 0.7 0.6 Eos # (Auto) 0.1 0.1 Baso # (Auto) 0.0 0.0 WBC Differential . . Differential Comment Auto diff final Auto diff final Sodium 142 Potassium 4.3 Chloride 107 Carbon Dioxide 29.3 Anion Gap 6 BUN 24 H Creatinine 1.32 H Estimated GFR 55 L Random Glucose 81 Calcium 8.7 Total Bilirubin 0.3 AST 17 ALT 20 Alkaline Phosphatase 69 Total Protein 6.7 Albumin 3.0 L 10/01/17 05:00 WBC RBC Hgb Hct MCV MCH MCHC RDW Plt Count MPV Neut % (Auto) Lymph % (Auto) [place] % (Auto) Eos % (Auto) Baso % (Auto) Neut # (Auto) Lymph # (Auto) [place] # (Auto) Eos # (Auto) Baso # (Auto) WBC Differential Differential Comment Sodium 140 Potassium 4.0 Chloride 106 Carbon Dioxide 26.4 Anion Gap 8 BUN 23 H Creatinine 1.08 Estimated GFR 69 L Random Glucose 88 Calcium 8.2 L Total Bilirubin AST ALT Alkaline Phosphatase Total Protein Albumin - Imaging Impressions Chest X-Ray 09/30/17 21:17 CONCLUSION: Patchy airspace disease in the right lower lobe of concern for early pneumonia. Assessment and Plan - Plan 61-year-old male initially presented to the emergency room for evaluation of shortness of breath and right-sided rib pain. Hypoxic on arrival. Reports only history of migraines. Assessment/plan: 1. Community-acquired pneumonia Chest x-ray significant for patchy airspace disease in the right lower lobe concerning for early pneumonia Rocephin/azithromycin Duo nebs Supplemental oxygen as needed Decreased inspiratory effort likely secondary to rib pain Incentive spirometry 2. Rib strain No bony abnormalities noted on chest x-ray Tender to palpation Percocet for pain control 3. Chronic kidney disease Creatinine 1.32, baseline Monitor renal function 4. Migraine, acute Add as needed morphine due to vomiting with Percocet. FEN Heart healthy diet Electrolytes: Monitor and replete as needed Heparin
[2017-10-01] MEDS: Morphine Inj 4 MG/ML Vial IV.PUSH PRN (20:54)
[2017-10-01] MEDS: Azithromycin Inj 500 MG in Sodium Chlor 0.9% Inj 250 ML IV.SIG SCH (21:19)
[2017-10-01] MEDS: Heparin - SQ 10,000 UNITS/ML Vial SQ SCH (23:55)
[2017-10-02] MEDS: Temazepam 15 MG Capsule PO PRN ×2 (00:29→22:07)
[2017-10-02 08:03] LABS: Baso % (Auto) 0.3 % (0.0-2.0); Eos # (Auto) 0.1 th/mm3 (0.0-0.4); Eos % (Auto) 1.5 % (0.0-4.0); Hematocrit 35.5 % (39.0-51.0); Lymph # (Auto) 1.2 th/mm3 (1.0-4.8); Lymph % (Auto) 16.9 % (9.0-44.0); Mean Corpuscular HGB Conc 33.9 % (32.0-36.0); Mean Corpuscular Hemoglobin 29.2 pg (27.0-34.0); Mean Corpuscular Volume 86.1 fL (80.0-100.0); Mean Platelet Volume 7.9 fL (7.0-11.0); Mono # (Auto) 0.6 th/mm3 (0.0-0.9); Mono % (Auto) 8.5 % (0.0-8.0); Neut # (Auto) 5.2 th/mm3 (1.8-7.7); Neut % (Auto) 72.8 % (16.0-70.0); Platelet Count 256 th/mm3 (150-450); Red Blood Count 4.12 mil/mm3 (4.50-5.90); Red Cell Distribution Width 16.1 % (11.6-17.2); White Blood Count 7.1 th/mm3 (4.0-11.0)
[2017-10-02 08:26] LABS: Calcium 8.4 mg/dL (8.5-10.1); Carbon Dioxide 27.5 meq/L (21.0-32.0); Potassium 3.8 meq/L (3.5-5.1)
[2017-10-02] MEDS: Senna/Docusate Sodium 8.6/50 MG Tablet PO SCH ×2 (10:00→21:00)
[2017-10-02] MEDS: Morphine Inj 4 MG/ML Vial IV.PUSH PRN ×3 (11:53→22:04)
[2017-10-02] MEDS: Heparin - SQ 10,000 UNITS/ML Vial SQ SCH (11:54)
--- NOTE | 2017-10-02 15:13 | P.PN ---
Subjective Interval history: Patient is seen sitting on side of bed. He tells me that he is breathing better but he does continue to have some right-sided rib pain. No other chest pain. He is asking if he can have an albuterol inhaler when he is discharged because he does sometimes get wheezing at home. Denies any nausea vomiting or diarrhea. He is tolerating his meals well. Physical Exam Vital signs: Vital Signs 10/01/17 16:00 10/01/17 20:07 10/02/17 00:00 Temperature 97.5 F L 98.1 F Pulse Rate 68 72 Respiratory Rate 14 19 Blood Pressure 122/79 136/76 Pulse Oximetry 91 L 93 L 97 10/02/17 04:00 10/02/17 08:00 10/02/17 12:00 Temperature 97.8 F 98.4 F 98.4 F Pulse Rate 74 69 72 Respiratory Rate 19 16 16 Blood Pressure 107/74 127/72 118/79 Pulse Oximetry 95 96 91 L Intake & Output 10/01/17 10/02/17 10/02/17 18:59 06:59 18:59 Intake Total 350 / 350 350 / 350 Balance 350 / 350 350 / 350 Intake: IV 350 / 350 350 / 350 Azithromycin Inj 500 MG In NS 250 / 250 Inj 250 ML @ 250 mls/hr IV.SIG Q24H MARISSA Rx#:[id number] Rocephin Inj 1,000 MG In NS Inj 100 / 100 100 ML @ 200 mls/hr IV.SIG Q24H MARISSA Rx#:[id number] Other: Date of Last Bowel Movement 09/30/17 # [place] 1 Narrative: GENERAL: Well-nourished, well-developed adult male. SKIN: Warm and dry. HEAD: Atraumatic. Normocephalic. CARDIOVASCULAR: Regular rate and rhythm. RESPIRATORY: No accessory muscle use. Clear to auscultation. Breath sounds equal bilaterally. GASTROINTESTINAL: Abdomen soft, non-tender, non-distended. Positive bowel sounds. MUSCULOSKELETAL: Extremities without clubbing, cyanosis, or edema. No obvious deformities. NEUROLOGICAL: Awake and alert. No obvious cranial nerve deficits. Motor grossly within normal limits. Normal speech. Results - Labs CBC & Chem 7: 10/02/17 06:34 10/02/17 06:34 Laboratory Results - last 24 hr 10/02/17 10/02/17 06:34 06:34 WBC 7.1 RBC 4.12 L Hgb 12.0 L Hct 35.5 L MCV 86.1 MCH 29.2 MCHC 33.9 RDW 16.1 Plt Count 256 MPV 7.9 Neut % (Auto) 72.8 H Lymph % (Auto) 16.9 [place] % (Auto) 8.5 H Eos % (Auto) 1.5 Baso % (Auto) 0.3 Neut # (Auto) 5.2 Lymph # (Auto) 1.2 [place] # (Auto) 0.6 Eos # (Auto) 0.1 Baso # (Auto) 0.0 WBC Differential . Differential Comment Auto diff final Sodium 139 Potassium 3.8 Chloride 105 Carbon Dioxide 27.5 Anion Gap 7 BUN 19 H Creatinine 0.98 Estimated GFR 78 L Random Glucose 84 Calcium 8.4 L Magnesium 2.0 Assessment and Plan - Plan 61-year-old male initially presented to the emergency room for evaluation of shortness of breath and right-sided rib pain. Hypoxic on arrival. Reports only history of migraines. Assessment/plan: 1. Community-acquired pneumonia Chest x-ray significant for patchy airspace disease in the right lower lobe concerning for early pneumonia Rocephin/azithromycin Duo nebs; discharged with albuterol inhaler Supplemental oxygen as needed Decreased inspiratory effort likely secondary to rib pain Incentive spirometry 2. Rib strain No bony abnormalities noted on chest x-ray Tender to palpation Percocet for pain control 3. Chronic kidney disease Creatinine 1.32, baseline Monitor renal function 4. Migraine, acute Add as needed morphine due to vomiting with Percocet. FEN Heart healthy diet Electrolytes: Monitor and replete as needed Heparin
[2017-10-02] MEDS: Azithromycin Inj 500 MG in Sodium Chlor 0.9% Inj 250 ML IV.SIG SCH (22:08)
[2017-10-03] MEDS: Heparin - SQ 10,000 UNITS/ML Vial SQ SCH ×2 (01:06→12:39)
[2017-10-03] MEDS: Senna/Docusate Sodium 8.6/50 MG Tablet PO SCH (08:07)
--- NOTE | 2017-10-03 12:16 | P.PN ---
Subjective Interval history: Patient is seen sitting up on side of bed. Tells me that he is breathing better. No chest pain. No nausea vomiting or diarrhea. He really would like to go home today. Physical Exam Vital signs: Vital Signs 10/02/17 16:00 10/02/17 18:33 10/02/17 21:36 Temperature 97.8 F 98.9 F Pulse Rate 69 62 Respiratory Rate 16 18 20 Blood Pressure 136/81 146/89 H Pulse Oximetry 93 L 97 10/03/17 00:51 10/03/17 05:01 10/03/17 08:00 Temperature 98.4 F 97.5 F L 97.5 F L Pulse Rate 66 71 59 L Respiratory Rate 20 18 16 Blood Pressure 140/87 131/93 H 121/74 Pulse Oximetry 95 96 91 L 10/03/17 10:00 Temperature Pulse Rate Respiratory Rate 16 Blood Pressure Pulse Oximetry Intake & Output 10/02/17 10/03/17 10/03/17 18:59 06:59 18:59 Intake Total 830 / 830 Balance 830 / 830 Weight 74.4 kg Intake: IV 350 / 350 Azithromycin Inj 500 MG In NS 250 / 250 Inj 250 ML @ 250 mls/hr IV.SIG Q24H MARISSA Rx#:[id number] Rocephin Inj 1,000 MG In NS Inj 100 / 100 100 ML @ 200 mls/hr IV.SIG Q24H MARISSA Rx#:[id number] Oral 480 / 480 Other: # Voids 4 3 Narrative: GENERAL: Well-nourished, well-developed adult male. SKIN: Warm and dry. HEAD: Atraumatic. Normocephalic. CARDIOVASCULAR: Regular rate and rhythm. RESPIRATORY: No accessory muscle use. Clear to auscultation. Breath sounds equal bilaterally. GASTROINTESTINAL: Abdomen soft, non-tender, non-distended. Positive bowel sounds. MUSCULOSKELETAL: Extremities without clubbing, cyanosis, or edema. No obvious deformities. NEUROLOGICAL: Awake and alert. No obvious cranial nerve deficits. Motor grossly within normal limits. Normal speech. Results - Labs CBC & Chem 7: 10/02/17 06:34 10/02/17 06:34 Assessment and Plan - Plan 61-year-old male initially presented to the emergency room for evaluation of shortness of breath and right-sided rib pain. Hypoxic on arrival. Reports only history of migraines. Assessment/plan: 1. Community-acquired pneumonia Chest x-ray significant for patchy airspace disease in the right lower lobe concerning for early pneumonia Rocephin/azithromycin - will send home on orals; duonebs and inhaler Duo nebs; discharged with albuterol inhaler Supplemental oxygen as needed Decreased inspiratory effort likely secondary to rib pain Incentive spirometry 2. Rib strain No bony abnormalities noted on chest x-ray Tender to palpation Percocet for pain control 3. Chronic kidney disease Creatinine 1.32, baseline Monitor renal function 4. Migraine, acute Add as needed morphine due to vomiting with Percocet. FEN Heart healthy diet Electrolytes: Monitor and replete as needed Heparin
--- NOTE | 2017-10-03 12:21 | P.DS ---
Date of admission: 09/30/17 23:53 Primary care physician: No Primary Care Physician Attending physician on discharge: Handy Eli Anticipated date of discharge: 10/03/17 Brief History from admission: 61-year-old male with a past medical history significant for migraines presents to the emergency department for the evaluation of shortness of breath. The patient also complains of right sided rib pain. Patient states that he was moving an industrial sized washing machine 2 days ago and later that night he started experiencing rib pain and felt short of breath, worse with deep inspiration. The patient's symptoms have been per getting progressively worse. He was found to be hypoxic on room air on arrival to the emergency department. No fever/chills. No additional chest pain or tightness. No abdominal pain. No nausea/vomiting/diarrhea. No lateralizing signs/symptoms. DS: Diagnosis - Discharge Diagnosis (1) Community acquired pneumonia Status: Acute (2) Rib pain on right side Status: Acute DS: Medications - Discharge Medications Prescriptions: albuterol sulfate [Ventolin HFA] 2 puff INH Q4HR #1 inhaler azithromycin 0 mg PO DAILY #1 pkg cefuroxime axetil 250 mg PO Q12HR #20 tab ipratropium-albuterol 1 amp NEB Q6HR WHILE AWAKE NEB #120 ml DS: Summary Hospital Course: 61-year-old male initially presented to the emergency room for evaluation of shortness of breath and right-sided rib pain. Hypoxic on arrival. Reports only history of migraines. Chest x-ray significant for patchy airspace disease in the right lower lobe. Treated for community-acquired pneumonia with Rocephin/azithromycin - will send home on orals; duonebs and inhaler. Decreased inspiratory effort likely secondary to rib pain/ Rib strain. No bony abnormalities noted on chest x-ray. - Time Spent with Patient Total time spent providing and/or coordinating discharge services: Less than 30 minutes - Quality: VTE Deep Vein Thrombosis/Pulmonary Embolism Present on Admission: No Exam Vital signs: Vital Signs 10/02/17 16:00 10/02/17 18:33 10/02/17 21:36 Temperature 97.8 F 98.9 F Pulse Rate 69 62 Respiratory Rate 16 18 20 Blood Pressure 136/81 146/89 H Pulse Oximetry 93 L 97 10/03/17 00:51 10/03/17 05:01 10/03/17 08:00 Temperature 98.4 F 97.5 F L 97.5 F L Pulse Rate 66 71 59 L Respiratory Rate 20 18 16 Blood Pressure 140/87 131/93 H 121/74 Pulse Oximetry 95 96 91 L 10/03/17 10:00 Temperature Pulse Rate Respiratory Rate 16 Blood Pressure Pulse Oximetry Intake & Output 10/02/17 10/03/17 10/03/17 18:59 06:59 18:59 Intake Total 830 / 830 Balance 830 / 830 Weight 74.4 kg Intake: IV 350 / 350 Azithromycin Inj 500 MG In NS 250 / 250 Inj 250 ML @ 250 mls/hr IV.SIG Q24H MARISSA Rx#:[id number] Rocephin Inj 1,000 MG In NS Inj 100 / 100 100 ML @ 200 mls/hr IV.SIG Q24H MARISSA Rx#:[id number] Oral 480 / 480 Other: # Voids 4 3 Narrative: GENERAL: Well-nourished, well-developed adult male. SKIN: Warm and dry. HEAD: Atraumatic. Normocephalic. CARDIOVASCULAR: Regular rate and rhythm. RESPIRATORY: No accessory muscle use. Clear to auscultation. Breath sounds equal bilaterally. GASTROINTESTINAL: Abdomen soft, non-tender, non-distended. Positive bowel sounds. MUSCULOSKELETAL: Extremities without clubbing, cyanosis, or edema. No obvious deformities. NEUROLOGICAL: Awake and alert. No obvious cranial nerve deficits. Motor grossly within normal limits. Normal speech. Results Procedures completed during hospitalization: none - Impressions ITS Impressions Chest X-Ray 09/30/17 21:17 CONCLUSION: Patchy airspace disease in the right lower lobe of concern for early pneumonia. Discharge Plan - Discharge Disposition Patient Disposition: Discharge Home - Discharge Condition Condition: Stable - Discharge Order Discharge Orders: Discharge Order (Routine); Ordered 10/03/17 Ordered By: Terri Estes - Physicians Team Primary Care Provider: Primary Care aNtalii,Dinha Attending Provider: Handy Eli
[2017-10-03 12:24] VITALS: BP 137/77; PULSE 78; TEMP 97.8; O2SAT 94
[2017-10-03] MEDS ORDERED: Azithromycin 250 MG Tablet PO SCH (12:30)
[2017-10-03 15:16] VITALS: RESP 20
== END 2017-10-03 15:53 | disposition home or self-care (01) ==
LOC: NEDA 18:50 → NEPC 18:50 → NEPFCDU 10-01 00:26
PROVIDERS: ADMIT Hospitalist; ATTEND Hospitalist